=== PATIENT | male | born 1985 | race Caucasian/White ===

== ENCOUNTER 2017-05-29 12:28 | Emergency (ER) | payer SELFPAY ==
[~2017-05-29] VITALS: Ht 172.7 cm; Wt 79.4 kg
== END 2017-05-29 13:41 | disposition home or self-care (01) ==
LOC: ED 12:28
DX: S29.012A Strain of muscle and tendon of back wall of thorax, initial encounter (principal); F10.10 Alcohol abuse, uncomplicated; X50.0XXA Overexertion from strenuous movement or load, initial encounter; Y93.89 Activity, other specified; Y92.89 Other specified places as the place of occurrence of the external cause; Y99.8 Other external cause status

== ENCOUNTER 2017-06-15 18:49 | Emergency (ER) | payer SELFPAY ==
[~2017-06-15] VITALS: Ht 172.7 cm; Wt 79.4 kg
== END 2017-06-15 19:45 | disposition home or self-care (01) ==
LOC: ED 18:49
DX: F10.10 Alcohol abuse, uncomplicated (principal); F41.9 Anxiety disorder, unspecified; F17.200 Nicotine dependence, unspecified, uncomplicated; Z91.040 Latex allergy status